=== PATIENT | female | born 1975 | race Two or more races ===

== ENCOUNTER 2022-05-01 10:33 | Emergency (ER) | payer OTHER ==
[~2022-05-01] VITALS: Ht 175.3 cm; Wt 116.6 kg
[2022-05-01] MEDS ORDERED: IPRAT-ALBUT 0.5-3 ML IH (16:00)
[2022-05-01] MEDS ORDERED: SOLU-MEDRO125 MG/2 M IJ (16:00)
[2022-05-01] MEDS ORDERED: LEVOFLOXACIN750 MG PO (16:00)
[2022-05-01] MEDS ORDERED: TORADOL60 MG IM (16:00)
== END 2022-05-01 16:42 | disposition home or self-care (01) ==
LOC: ER 10:33
DX: J21.9 Acute bronchiolitis, unspecified (principal)

== ENCOUNTER 2023-02-05 09:27 | Emergency (ER) | payer OTHER ==
[~2023-02-05] VITALS: Ht 175.3 cm; Wt 120.7 kg
[~2023-02-05 09:27] MED LIST: IPRAT-ALBUT 0.5-3 ML IH; LEVOFLOXACIN750 MG PO; SOLU-MEDRO125 MG/2 M IJ; TORADOL60 MG IM
== END 2023-02-05 10:42 | disposition home or self-care (01) ==
LOC: ER 09:27
DX: J06.9 Acute upper respiratory infection, unspecified (principal)

== ENCOUNTER 2023-07-31 11:36 | Emergency (ER) | payer OTHER ==
[~2023-07-31] VITALS: Ht 175.3 cm; Wt 122.0 kg
[2023-07-31 15:16] LABS: HEMATOCRIT 40.3 % (36.0-45.00); HEMOGLOBIN 13.7 g/dL (12.0-15.00); MEAN CELL VOLUME 85.4 fL (80.00-100.00); MEAN CORPUSCULAR HEMOGLOBIN 29.1 pg (27.00-32.0); PLATELET COUNT 231 K/uL (150-450); RED BLOOD COUNT 4.71 M/uL (4.00-6.00); RED CELL DISTRIBUTION WIDTH 13.3 % (11.5-14.5)
[2023-07-31 15:36] LABS: CREATININE SERUM 0.63 mg/dL (0.55-1.02); GFR 101.29; POTASSIUM 4.25 mEq/L (3.5-5.1)
[2023-07-31] MEDS ORDERED: LISINOPRIL 10 MG TABLET PO STA (16:55)
== END 2023-07-31 19:08 | disposition home or self-care (01) ==
LOC: ER 11:36
PROVIDERS: General Practice
DX: R42 Dizziness and giddiness (principal)